=== PATIENT | female | born 1970 | race Caucasian/White ===

== ENCOUNTER → 2016-10-19 | Day surgery (SDC) | payer OTHER ==
[~2016-10-19] MED LIST: ACETAMINOPHEN 1000 MG/100 ML VIAL IV ONE; ACETAMINOPHEN/HYDROcodone 325 MG/5 MG TAB ONE; ALPR.25 PO; BUPIVACAINE/EPINEPHRINE 0.25% PF 30 ML VIAL ONE; HYDR-3288 PO; HYDROmorphone HCL PF 2 MG/ML VIAL ONE; KETOROLAC TROMETHAMINE 30 MG/ML (IVP) VIAL IV PUSH ONE; LACTATED RINGER'S 1,000 ML BAG IV ONE; LACTATED RINGER'S 1000 ML INJ 1,000 ML ONE; MEPERIDINE HCL 25 MG/ML VIAL ONE; MIDAZOLAM HCL 2 MG/2 ML VIAL ONE; MULT1TAB84 PO; ONDANSETRON HCL 4 MG/2 ML VIAL IV PUSH ONE; PROM25TA5 PO; PROPOFOL 200 MG/20 ML AMP IV ONE; SODIUM CHLOR 0.9% 250 ML INJ 250 ML IV ONE; VANCOMYCIN HCL 1000 MG VIAL ONE; ZOFR8TAB PO
--- NOTE | 2016-10-23 19:47 | MP ---
cc: LENKA DRAPER M.D., HARRY M.D. ROBBINS, RENA M. M.D. DATE OF SURGERY: 10/19/2016 PROCEDURE Laparoscopic cholecystectomy PREOPERATIVE DIAGNOSIS Right upper quadrant pain with cholecystitis POSTOPERATIVE DIAGNOSIS Right upper quadrant pain with cholecystitis Hemangioma right lobe of liver ANESTHESIA General endotracheal SURGEON Bird ESTIMATED BLOOD LOSS Less than 10 mls. FLUIDS: 850 mls crystalloid COMPLICATIONS None. DRAINS: None. SPECIMEN Gallbladder to pathology. FINDINGS Slightly thickened gallbladder wall, hemangioma noted adjacent to the gallbladder which was cauterized on the surface. No bleeding from this. PROCEDURE IN DETAIL The patient was taken to the operating room and placed on the operating table in the supine position. After an adequate level of general endotracheal anesthesia was achieved the abdomen was prepped and draped in usual fashion. Time-out was taken confirming the correct patient site and procedure to be performed. The skin and subcutaneous tissue was infiltrated with local anesthetic and an incision was made in the umbilicus and carried through the fascia sharply. The peritoneal cavity was directly visualized. A 12 mm balloon trocar was inserted and the balloon inflated. The abdomen was insufflated and the patient was placed in reverse Trendelenburg position. Three 5 mm trocars were then placed with the first in the upper midline just to the right of the falciform ligament and second and third in the right subcostal region. All three entered the abdominal cavity under direct vision uneventfully. The fundus of the gallbladder was then grasped and retracted upward. The cystic duct infundibular junction and cystic artery were then circumferentially dissected from the surrounding peritoneal tissues. The cystic artery was doubly clipped proximally, singly clipped on the gallbladder side and divided. The cystic duct was doubly clipped distally, singly clipped on the gallbladder side and divided as well. His anatomy was clearly identified and as the patient had normal liver function tests and nondilated common duct, cholangiogram was not obtained. The gallbladder was then dissected off of the liver bed with electro dissection. The gallbladder was placed into an EndoCatch device and passed off via the umbilical port site while observing via the upper 5 mm trocar site. The laparoscope was placed once again through the umbilical port site and the liver bed, cystic artery stump and cystic duct stump were all seen to be clean and dry. At this point the hemangioma on the underside of the liver was easily seen and was approximately 2 cm in size. This was cauterized on the liver surface and resulted in substantial shrinkage after cauterization. This was performed in an effort to assist and possibly cause regression of the hemangioma for the patient. Due to the proximity to the gallbladder, there was also distinct possibility that this was causing her symptoms. Thus the lesion was cauterized as indicated above. At the termination of the procedure the liver edge was smoothed up with cautery as well. Insufflation was then discontinued and the upper abdominal trocars removed under direct vision. No bleeding was noted from the trocar sites as the abdomen was desufflated. The laparoscope and umbilical port were then removed. The fascia was closed in the umbilicus with simple interrupted and [id number] 0 Vicryl suture. The skin was closed at all four trocar sites with 4-0 Vicryl in an interrupted buried fashion. The skin was dressed on all trocar sites with Steri-Strips. The patient was extubated and taken back to the recovery room in stable condition. Sponge, needle and instrument counts were reported be correct. The patient tolerated the procedure well. MD FLORENCIO Haas/karla /11:33 AM /7:40 PM MTDD
== END | disposition home or self-care (01) ==
LOC: ESDC 08:17
PROVIDERS: ATTEND Surgery Trauma Surgery
DX: K81.0 Acute cholecystitis (principal)
CPT/HCPCS: 00790; 47562; 88304; J0131; J1170; J1885; J2175; J2250; J2405; J3010; J3370; J7050; J7120

== ENCOUNTER → 2016-11-05 | Outpatient (CLI) | payer OTHER ==
[~2016-11-05] MED LIST changes: -ACETAMINOPHEN 1000 MG/100 ML VIAL IV ONE; -ACETAMINOPHEN/HYDROcodone 325 MG/5 MG TAB ONE; -BUPIVACAINE/EPINEPHRINE 0.25% PF 30 ML VIAL ONE; -HYDROmorphone HCL PF 2 MG/ML VIAL ONE; -KETOROLAC TROMETHAMINE 30 MG/ML (IVP) VIAL IV PUSH ONE; -LACTATED RINGER'S 1,000 ML BAG IV ONE; -LACTATED RINGER'S 1000 ML INJ 1,000 ML ONE; -MEPERIDINE HCL 25 MG/ML VIAL ONE; -MIDAZOLAM HCL 2 MG/2 ML VIAL ONE; -ONDANSETRON HCL 4 MG/2 ML VIAL IV PUSH ONE; -PROPOFOL 200 MG/20 ML AMP IV ONE; -SODIUM CHLOR 0.9% 250 ML INJ 250 ML IV ONE; -VANCOMYCIN HCL 1000 MG VIAL ONE
== END ==
LOC: CLAB 09:07
DX: R10.10 Upper abdominal pain, unspecified (principal)
CPT/HCPCS: 36415; 82565; 84520

== ENCOUNTER → 2016-11-16 | Outpatient (CLI) | payer OTHER | LOC: CLAB 10:22 | PROVIDERS: ATTEND Internal Medicine Gastroenterology | DX: R10.11 Right upper quadrant pain (principal) | CPT/HCPCS: 36415; 82105; 82378; 86301; 87205 ==

== ENCOUNTER → 2016-12-07 | Outpatient (CLI) | payer OTHER ==
[~2016-12-07] VITALS: Ht 170.2 cm; Wt 73.5 kg
[~2016-12-07] MED LIST changes: +INSULIN HUMAN REGULAR 1,000 UNITS/10 ML VIAL SQ PRN; +LACTATED RINGER'S 1000 ML IV SCH; +METOPROLOL TARTRATE 25 MG TAB PO PRN; +MORPHINE SULFATE 4 MG/ML INJ IV PUSH ONE; +PROPOFOL 200 MG/20 ML AMP IV ONE; +SODIUM CHLORID 0.9% 500 ML IV SCH
[2016-12-07 13:29] VITALS: BP 138/73; PULSE 70; RESP 18; TEMP 97.9; O2SAT 97
[2016-12-07 15:01] VITALS: BP 121/65; PULSE 82; RESP 16; O2SAT 100
== END ==
LOC: HEND 13:06
DX: R10.11 Right upper quadrant pain (principal); R94.8 Abnormal results of function studies of other organs and systems
CPT/HCPCS: 00810; 45378; J2270; J7120

== ENCOUNTER → 2017-02-05 | Outpatient (CLI) | payer OTHER ==
[~2017-02-05] MED LIST changes: -INSULIN HUMAN REGULAR 1,000 UNITS/10 ML VIAL SQ PRN; -LACTATED RINGER'S 1000 ML IV SCH; -METOPROLOL TARTRATE 25 MG TAB PO PRN; -MORPHINE SULFATE 4 MG/ML INJ IV PUSH ONE; -PROPOFOL 200 MG/20 ML AMP IV ONE; -SODIUM CHLORID 0.9% 500 ML IV SCH
[2017-02-05 09:22] LABS: AUTOMATED NEUTROPHIL # 2.8 TH/MM3 (1.8-7.7); BASOPHIL # 0.1 TH/MM3 (0-0.2); BASOPHIL % 1.5 % (0.0-2.0); EOSINOPHIL # 0.2 TH/MM3 (0-0.4); EOSINOPHIL % 3.8 % (0.0-4.0); HEMATOCRIT 36.7 % (35.0-46.0); HEMO FLAGS DIFF FINAL; LYMPH % 29.5 % (9.0-44.0); LYMPHOCYTE # 1.4 TH/MM3 (1.0-4.8); MEAN CELL VOLUME 92.1 FL (80.0-100.0); MEAN CORPUSCULAR HGB CONC 32.6 % (32.0-36.0); MONO % 6.9 % (0.0-8.0); NEUT % 58.3 % (16.0-70.0); PLATELET COUNT 189 TH/MM3 (150-450); RED BLOOD COUNT 3.99 MIL/MM3 (4.00-5.30); RED CELL DISTRIBUTION WIDTH 13.2 % (11.6-17.2); WHITE BLOOD COUNT 4.7 TH/MM3 (4.0-11.0)
[2017-02-05 09:28] LABS: PROTHROMBIN TIME - PATIENT 10.9 SEC (9.8-11.6)
[2017-02-05 10:25] LABS: ALKALINE PHOSPHATASE 51 U/L (45-117); ALT (GPT) 25 U/L (10-53); ANION GAP 6 MEQ/L (5-15); AST (GOT) 18 U/L (15-37); BLOOD UREA NITROGEN 14 MG/DL (7-18); CHLORIDE 107 MEQ/L (98-107); FERRITIN 67 NG/ML (8-252); GLOMERULAR FILTRATION RATE 84 ML/MIN (>89); GLUCOSE,FASTING 77 MG/DL (74-99); HDL CHOLESTEROL 85.6 MG/DL (40.0-60.0); INDIRECT BILIRUBIN 0.2 MG/DL (0.0-0.8); LDL CHOLESTEROL 81 MG/DL (0-99); POTASSIUM 3.7 MEQ/L (3.5-5.1); SODIUM (NA) 141 MEQ/L (136-145); TOTAL BILIRUBIN ADULT 0.3 MG/DL (0.2-1.0); TRANSFERRIN IRON PROFILE 247 MG/DL (200-360)
[2017-02-05 10:28] LABS: IMMUNOGLOBULIN A 244 MG/DL (78-430); IMMUNOGLOBULIN G 1260 MG/DL (670-1640); IMMUNOGLOBULIN M 93 MG/DL (55-338)
[2017-02-06 14:56] LABS: ANA SCREEN POS (NEG)
[2017-02-07 03:49] LABS: IGA SERUM 251 mg/dL (81-463); TISSUE TRANSGLUTAMINASE AB IGG ND U/mL (())
[2017-02-07 13:50] LABS: ENDOMYSIAL AB TITER ND (<1:5); TISSUE TRANSGLUTAMINASE AB 1 U/mL (())
[2017-02-08 03:51] LABS: MITOCHONDRIAL ABS LESS THAN 20.0 U (())
[2017-02-08 17:28] LABS: ANA TITER QUANT 1:40 (NEG)
== END ==
LOC: CLAB 08:39
DX: R16.0 Hepatomegaly, not elsewhere classified (principal); R10.11 Right upper quadrant pain; R93.8 Abnormal findings on diagnostic imaging of other specified body structures
CPT/HCPCS: 36415; 80048; 80061; 80076; 82103; 82390; 82728; 82746; 82784; 83516; 83520; 83540; 83550; 85025; 85610; 86038; 86039; 86256

== ENCOUNTER → 2017-02-22 | Outpatient (CLI) | payer OTHER ==
[2017-02-22 13:26] LABS: RHEUMATOID FACTOR TRIGGER LESS THAN 10.0 IU/ML (0.0-14.9)
[2017-02-22 13:28] LABS: CREATINE KINASE 60 U/L (26-192)
[2017-02-22 13:34] LABS: BACTERIA, URINE RARE /hpf; BLOOD, URINE MOD (NEG); GLUCOSE,URINE NEG (NEG); KETONE, URINE NEG (NEG); MUCUS URINE FEW /lpf (OCC); NITRITE,URINE NEG (NEG); PH, URINE 5.5 (5.0-8.5); SQUAMOUS EPITHELIAL CELL URINE 5 /hpf (0-5); URINE COLOR YELLOW (YELLW/STRAW)
[2017-02-25 13:54] LABS: SM ANTIBODY <1.0 NEG AI (<1.0 NEGATIVE); SM/RNP ANTIBODY <1.0 NEG AI (<1.0 NEGATIVE)
== END ==
LOC: CLAB 12:27
DX: M35.00 Sjogren syndrome, unspecified (principal); R76.8 Other specified abnormal immunological findings in serum; M62.81 Muscle weakness (generalized)
CPT/HCPCS: 36415; 81001; 82550; 85652; 86140; 86160; 86200; 86225; 86235; 86256; 86430; 87328; 87329

== ENCOUNTER → 2017-03-11 | Outpatient (CLI) | payer OTHER | LOC: CLAB 02-28 15:29 | DX: B65.9 Schistosomiasis, unspecified (principal) ==

== ENCOUNTER → 2017-03-25 | Outpatient (CLI) | payer OTHER ==
[2017-03-25 08:38] LABS: BLOOD, URINE SMALL (NEG); COMMENT (UR) CULT NOT INDICATED; CULTURE IF INDICATED CULT NOT INDICATED; GLUCOSE,URINE NEG (NEG); HYALINE CAST, URINE 4 /lpf (RARE); KETONE, URINE NEG (NEG); MUCUS URINE FEW /lpf (OCC); NITRITE,URINE NEG (NEG); PH, URINE 5.5 (5.0-8.5); SQUAMOUS EPITHELIAL CELL URINE <1 /hpf (0-5); URINE COLOR YELLOW (YELLW/STRAW)
== END ==
LOC: CLAB 07:37
PROVIDERS: ATTEND General Practice
DX: R31.9 Hematuria, unspecified (principal)
CPT/HCPCS: 81001

== ENCOUNTER → 2017-05-23 | Outpatient (CLI) | payer OTHER ==
[~2017-05-23] MED LIST changes: -MULT1TAB84 PO; +MULTTAB67 PO; +PROM25TA10 PO; -PROM25TA5 PO
== END ==
LOC: CLAB 10:15
DX: R19.7 Diarrhea, unspecified (principal)
CPT/HCPCS: 36415; 82306; 83630; 84443; 85652; 86141; 86753; 87205; 87328; 87329

== ENCOUNTER → 2017-07-25 | Outpatient (CLI) | payer OTHER ==
[2017-07-25 15:19] LABS: AUTOMATED NEUTROPHIL # 3.4 TH/MM3 (1.8-7.7); BASOPHIL # 0.1 TH/MM3 (0-0.2); BASOPHIL % 1.2 % (0.0-2.0); EOSINOPHIL # 0.2 TH/MM3 (0-0.4); EOSINOPHIL % 3.9 % (0.0-4.0); HEMATOCRIT 40.4 % (35.0-46.0); HEMO FLAGS DIFF FINAL; LYMPH % 31.1 % (9.0-44.0); LYMPHOCYTE # 1.8 TH/MM3 (1.0-4.8); MEAN CELL VOLUME 90.3 FL (80.0-100.0); MEAN CORPUSCULAR HEMOGLOBIN 30.6 PG (27.0-34.0); MEAN CORPUSCULAR HGB CONC 33.8 % (32.0-36.0); MONO % 5.4 % (0.0-8.0); NEUT % 58.4 % (16.0-70.0); PLATELET COUNT 234 TH/MM3 (150-450); RED BLOOD COUNT 4.47 MIL/MM3 (4.00-5.30); RED CELL DISTRIBUTION WIDTH 12.9 % (11.6-17.2); WHITE BLOOD COUNT 5.7 TH/MM3 (4.0-11.0)
[2017-07-28 13:08] LABS: BARTONELLA HENSELAE IGG <1:128 titer (<1:128); BARTONELLA HENSELAE IGM <1:20 titer (<1:20); BARTONELLA QUINTANA IGM <1:20 titer (<1:20)
[2017-07-29 14:58] LABS: MITOGEN MINUS NIL RESULT >10.00 IU/mL; NIL RESULT 0.03 IU/mL; QUANTIFERON TB GOLD RESULT Negative (Negative)
== END ==
LOC: CLAB 09:42
PROVIDERS: ATTEND Specialist
DX: M32.9 Systemic lupus erythematosus, unspecified (principal); R50.9 Fever, unspecified
CPT/HCPCS: 36415; 85025; 85060; 86038; 86140; 86225; 86480; 86611; 86682; 86777; 86778; 87015; 87207; 87798

== ENCOUNTER → 2017-12-11 | Outpatient (CLI) | payer OTHER | LOC: CLAB 10:58 | PROVIDERS: ATTEND Specialist | DX: R50.9 Fever, unspecified (principal) ==

== ENCOUNTER → 2018-01-08 | Outpatient (CLI) | payer OTHER ==
[2018-01-09 03:44] LABS: EBV VCA IgM Negative (Negative)
== END ==
LOC: CLAB 09:29
DX: R53.82 Chronic fatigue, unspecified (principal)
CPT/HCPCS: 36415; 86664; 86665

== ENCOUNTER → 2018-01-28 | Outpatient (CLI) | payer OTHER ==
[2018-01-28 08:49] LABS: CREATININE 0.77 MG/DL (0.50-1.00)
== END ==
LOC: CLAB 08:03
DX: Z94.4 Liver transplant status (principal)
CPT/HCPCS: 36415; 82565